=== PATIENT | male | born 1975 | race Caucasian/White ===

== ENCOUNTER 2023-12-22 21:13 | Emergency (ER) | payer OTHER ==
[~2023-12-22] VITALS: Ht 177.8 cm; Wt 94.0 kg
[2023-12-22 21:53] LABS: BASOPHILS 0.6 % (0-2); EOSINOPHILS 2.1 % (0-6); HEMATOCRIT 42.4 % (35.0-50.0); HEMOGLOBIN 14.5 g/dL (12.0-18.0); LYMPHOCYTES 23.8 % (24-44); MCH 30.6 (27-36); MCHC 34.3 g/dl (30-36); MONOCYTES 10.4 % (0-12); NEUTROPHILS 63.1 % (39-80); PLATELET COUNT 224 K/uL (140-440); RBC 4.76 M/ul (4.3-5.7); RDW 13.6 (10.5-15.0)
[2023-12-22 22:07] LABS: ALBUMIN 3.8 g/dL (3.4-5.0); ALBUMIN/GLOBULIN RATIO 1.09 (1.1-2.4); ANION GAP 12.8 (7-21); BILIRUBIN, TOTAL 0.8 ng/dL (0.2-1.0); BUN/CREATININE RATIO 16.36 (6.0-28.6); CREATININE, SERUM 1.1 mg/dL (0.70-1.30); POTASSIUM 3.8 mmol/L (3.5-5.1); PROTEIN, TOTAL 7.3 g/dL (6.4-8.2)
[2023-12-22] MEDS ORDERED: DOXYCYCLINE HYCLATE 100 MG CAP PO ONE (22:15)
[2023-12-22] MEDS ORDERED: DOXYCYCLINE HY100 MG PO (22:21)
--- OUTSIDE RECORDS SUMMARY | 2023-12-22 22:26 | XMS ---
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 Bernard has no Care Guidelines for this patient. [place] VISIT COUNT (12 MO.) 1 JANN Bone [address] [place] [address] TOTAL 2 NOTE: Visits indicate total known visits. ED/C VISIT TRACKING (12 MO.) 12/22/2023 21:15 [facility] [place] TYPE: Emergency COMPLAINT: - [facility] DIAGNOSES: - med clearance INPATIENT VISIT TRACKING (12 MO.) No inpatient visits to display in this time frame [id number]
[2023-12-22 22:27] VITALS: BP 123/80
[2023-12-22 22:55] LABS: ERYTHROCYTE SEDIMENTATION RATE 5
== END 2023-12-22 22:31 | disposition home or self-care (01) ==
LOC: ED 21:13
PROVIDERS: Internal Medicine
DX: L03.116 Cellulitis of left lower limb (principal); L02.612 Cutaneous abscess of left foot; Z88.5 Allergy status to narcotic agent
CPT/HCPCS: 36415; 73630; 80053; 85025; 85379; 85651; 86140; 99283-25

== ENCOUNTER 2024-01-12 03:40 | Emergency (ER) | payer MEDICAID ==
[~2024-01-12] VITALS: Ht 177.8 cm; Wt 93.0 kg
[~2024-01-12 03:40] MED LIST: DOXYCYCLINE HY100 MG PO
--- OUTSIDE RECORDS SUMMARY | 2024-01-12 03:43 | XMS ---
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 Bernard has no Care Guidelines for this patient. [place] VISIT COUNT (12 MO.) 2 JANN [facility] TOTAL 3 NOTE: Visits indicate total known visits. ED/C VISIT TRACKING (12 MO.) 01/12/2024 03:41 [facility] [place] TYPE: Emergency COMPLAINT: - LEFT FOOT INJURY 12/22/2023 21:15 [facility] [place] TYPE: Emergency COMPLAINT: - LT FOOT PAIN DIAGNOSES: - Allergy status to narcotic agent - Cellulitis of left lower limb - Cutaneous abscess of left foot - Pain in left foot [facility] DIAGNOSES: - med clearance INPATIENT VISIT TRACKING (12 MO.) No inpatient visits to display in this time frame [id number]
[2024-01-12 04:11] VITALS: BP 130/77
[2024-01-12] MEDS ORDERED: KETOROLAC TROMETHAMINE 30 MG/ML VIAL IV ONE (04:15)
[2024-01-12] MEDS ORDERED: DAPTOmycin 500 MG/10 ML VIAL IV ONE (04:15)
== END 2024-01-12 04:11 | disposition other institution, planned readmission (95) ==
LOC: ED 03:40
DX: L03.116 Cellulitis of left lower limb (principal); Z53.21 Procedure and treatment not carried out due to patient leaving prior to being seen by health care provider; Z88.5 Allergy status to narcotic agent
CPT/HCPCS: 80053; 80307; 83735; 85025; 86140; 99283; G0480